=== PATIENT | male | born 1975 | race Caucasian/White ===

== ENCOUNTER → 2020-12-19 16:22 | Outpatient (CLI) | payer BC, SELFPAY ==
--- NOTE | ~2020-12-19 | MR_ITS ---
EXAMINATION: MR knee LT wo con DATE: 12/19/2020 18:12 INDICATION: Left knee pain. TECHNIQUE: Magnetic resonance imaging (MRI) of the left knee was performed without intravenous contra st. Sequences included axial STIR FSE, coronal PD-weighted FSE and STIR FSE, sagittal PD-weighted FSE , and sagittal STIR FSE. COMPARISON: Left knee MRI 03/04/2015 FINDINGS: Medial compartment: There is a complex tear involving body and posterior horn of medial meniscus. There is extensive part ial thickness cartilage loss of tibial condyle, deep at the medial articular surface where there is m ild subchondral edema-like marrow signal intensity. There is extensive partial thickness cartilage lo ss of femoral condyle, deep at the central, medial, and posterior articular surface with mild subchon dral edema-like marrow signal intensity. Osteophytes are noted. Lateral compartment: There is a radial tear of posterior horn of lateral meniscus. There is shallow partial-thickness cart ilage loss of tibial condyle, worst medially where there is mild subchondral edema-like marrow signal intensity. There is extensive partial thickness cartilage loss of femoral condyle, deep at the centr al articular surface. Osteophytes are noted. Patellofemoral compartment: There is cartilage surface irregularity of patella. There is partial-thickness cartilage loss of troc hlea, deep at the central and lateral trochlea. Osteophytes are noted. Ligaments and tendons: There are changes of anterior cruciate ligament reconstruction, which is intact. The posterior crucia te ligament is intact. The medial collateral ligament is normal. There are changes of partial tear of the fibular collateral ligament proximally. There is a graft harvest site involving the middle third of patellar tendon. Fluid: There is a small knee joint effusion. There is a 3.6 x 1.6 cm ganglion cyst posterior to the anterior cruciate ligament reconstruction proximally. Osseous/other: There is a hematoma in lateral head of gastrocnemius muscle at the proximal myotendinous junction, co nsistent with partial tear. IMPRESSION: 1. Grade 2 strain of lateral head of gastrocnemius muscle. 2. Moderate tricompartmental chondrosis. 3. Intact anterior cruciate ligament reconstruction with associated ganglion cyst. 4. Tears of medial and lateral menisci. 5. Small knee joint effusion. Reviewed, dictated and finalized at location A. IMPRESSION: 1. Grade 2 strain of lateral head of gastrocnemius muscle. 2. Moderate tricompartmental chondrosis. 3. Intact anterior cruciate ligament reconstruction with associated ganglion cy st. 4. Tears of medial and lateral menisci. 5. Small knee joint effusion.
== END ==
PROVIDERS: PCP Internal Medicine; Visit Provider Physician Assistant Medical
DX: M25.562 Pain in left knee (principal); S86.812A Strain of other muscle(s) and tendon(s) at lower leg level, left leg, initial encounter; M22.2X1 Patellofemoral disorders, right knee; M67.462 Ganglion, left knee; S83.242A Other tear of medial meniscus, current injury, left knee, initial encounter; S83.282A Other tear of lateral meniscus, current injury, left knee, initial encounter; M25.462 Effusion, left knee
CPT/HCPCS: 73721

== ENCOUNTER 2022-08-05 13:39 | Outpatient (CLI) | payer BC, SELFPAY ==
--- NOTE | 2022-08-05 14:47 | ECG_ITS ---
Measurements Intervals [place] Rate: 62 P: 95 SC: 171 QRS: 24 QRSD: 109 T: -1 QT: 312 QTc: 317 Interpretive Statements SINUS RHYTHM INCOMPLETE RIGHT BUNDLE BRANCH BLOCK BORDERLINE ST-T WAVE ABNORMALITY- INFERIOR LEADS BASELINE ARTIFACT- I, II, III, AVR, AVL, AVF, V4-V6 BORDERLINE ECG NO PREVIOUS ECG AVAILABLE FOR COMPARISON Electronically Signed On 08-05-2022 15:14:36 FILTERER by Kyler Lassiter D.O.
[2022-08-05 16:07] LABS: Basophils Absolute Auto 0.1 K/mm3 (0.0-0.1); Eosinophils Absolute Auto 0.5 K/mm3 (0-0.3); Eosinophils Percent Auto 5.6 % (0-4.4); Hematocrit 46.6 % (42.0-52.0); Hemoglobin 15.3 g/dL (14.0-18.0); Immature Granulocyte Absolute 0.02 K/mm3 (0.00-0.031); Immature Granulocyte Percent A 0.2 % (0-0.5); Lymphocytes Absolute Auto 2.26 K/mm3 (0.9-3.2); Lymphocytes Percent Auto 27.4 % (18.3-44.2); Mean Corpuscular HGB Conc 32.8 g/dl (32-36); Mean Corpuscular Hemoglobin 30.3 pg (26-34); Mean Corpuscular Volume 92.3 fl (80-100); Mean Platelet Volume 9.2 fl (7.4-10.4); Monocytes Absolute Auto 0.8 K/mm3 (0.1-0.6); Monocytes Percent Auto 9.9 % (2.6-8.5); Neutrophils Absolute Auto 4.6 K/mm3 (1.3-6.7); Neutrophils Percent Auto 55.9 % (45.5-73.1); Platelet Count Result 272 k/mm3 (150-375); Red Blood Count 5.05 M/mm3 (4.6-6.20); Red Cell Distribution Width 12.9 % (11.5-14.5); White Blood Count 8.3 K/mm3 (4.5-10.0)
[2022-08-05 16:11] LABS: Appearance Urine Slightly Cloudy (Clear); Bilirubin Urine Negative (Negative); Blood Urine Trace-lysed (Negative); Color Urine Yellow (Yellow); Glucose Urine UA Negative (Negative); Ketones Urine Negative (Negative); Leukocyte Esterase Ur Negative LEU/UL (Negative); Nitrate Urine Negative (Negative); Protein Urine 1+ mg/dL (Negative); Specific Grav Ur 1.025 (1.001-1.035); Urobilinogen Urine 0.2 mg/dL (<2.0)
[2022-08-05 16:15] LABS: Urine Cotinine NEGATIVE
[2022-08-05 16:16] LABS: Albumin Level 4.6 g/dL (3.5-5.1); Anion Gap 10 mmol/L (8-16); Blood Urea Nitrogen 16 mg/dL (9-20); Calcium 8.8 mg/dL (8.4-10.2); Carbon Dioxide 27 mmol/L (22-30); Chloride 101 mmol/L (98-107); Estimated Glomerular Filt Rate > 60; Glucose 85 mg/dL (65-110); Hemoglobin A1C 5.7 % (<5.7); Potassium 3.7 mmol/L (3.4-5.0); Sodium 138 mmol/L (137-145)
[2022-08-05 16:17] LABS: INR 1.1; Prothrombin Time 13.9 Seconds (11.1-14.7)
[2022-08-05 16:18] LABS: Partial Thromboplastin Time 28.7 SECONDS (22.3-36.8)
[2022-08-05 16:22] LABS: Bacteria Urine Trace /hpf; Mucus Urine Heavy /lpf; Squamous Epithelial Cell Urine Rare /hpf (Few)
[2022-08-05 16:24] LABS: Add Urine Microscopic? YES
== END 2022-08-05 13:40 | disposition home or self-care (01) ==
LOC: ANHSURGERY 13:44
PROVIDERS: PCP Family Medicine; Visit Provider Orthopaedic Surgery
DX: Z01.818 Encounter for other preprocedural examination (principal); M17.12 Unilateral primary osteoarthritis, left knee; I45.19 Other right bundle-branch block
CPT/HCPCS: 80048; 80307; 81001; 82040; 83036; 85025; 85610; 85730; 86850; 86900; 86901; 87081; 93005

== ENCOUNTER 2022-08-18 01:36 | Day surgery (SDC) | payer BC, SELFPAY ==
[2022-08-05 14:12] VITALS: BP 140/88; PULSE 61; RESP 16; TEMP 36.5; O2SAT 100; BMI 35.6
--- NOTE | 2022-08-05 14:22 | PC.NURSE ---
Report to the Outpatient Waiting Room, entrance under the green pavilion located off [facility], at time _6:00AM on date __08/18/22 . Planned Procedure Time: __7:30AM . Time changes happen often and if your time is changed the preop area will call you the afternoon before. - You and your visitor will be asked to self-screen and do not enter if you have any COVID symptoms. - Only one visitor is requested with a max of two and NO children visitors are allowed at this time. - The patient visitor may be requested to leave or wait in car when not with patient due to distancing restrictions. - A mask is optional within the hospital. Patients may have clear liquids (water, carbonated beverages, clear teas, apple juice) until 3 hours prior to surgery with a maximum of 20 ounces. - No food from midnight until time of surgery. Take the following medications with a SIP of water the morning of surgery: _ADVAIR INHALER Medications to discontinue per physician ___HOLD ALL VITAMINS/SUPPLEMENTS 3 DAYS PRE-OP Date to take last dose____08/14/22 Please no make-up, nail ethiopian, hairspray, perfume, deodorant, or body powder the day of surgery. No jewelry (including any body piercings) or valuables the day of surgery, leave them at home. Please take a shower or bath the night before, or the morning of, surgery with an antibacterial soap. Wear comfortable, loose fitting clothing. Children are encouraged to wear pajamas. - Jewelry must be removed prior to entering the operating room. Rings and piercings that are not removed may be cut off. - The hospital will not accept responsibility for valuables. - Please leave all valuables, including medications, at home the day of surgery. If you are going home after surgery, a licensed emergency medical technician/driver must drive you home. - NO public transportation without another adult if you receive anesthesia. - We recommend that an adult stay with you for 24 hours following discharge. - We also recommend that you do not drive, make important decision, drink alcoholic beverages, or take any drugs that were not prescribed by your health care provider for at least 24 hours after your discharge time. Follow any additional instructions given to you from your surgeon. If you or anyone in your household have experienced Covid symptoms in the past week, please notify your surgeon or the nurse liaison at the phone number below for possible testing. Telephone instructions given to __PATIENT and asked if any additional questions and then verbalized understanding. Patient advised to call surgeon office or pre surgery nurse liaison [phone] if any additional questions.
[2022-08-18] VITALS (16 sets, daily range): BP systolic 111–141; BP diastolic 62–91; PULSE 67–86; RESP 12–20; TEMP 36–36.4; O2SAT 93–98
--- NOTE | ~2022-08-18 | XR_ITS ---
EXAMINATION: XR knee LT 2V DATE: 08/18/2022 11:38 INDICATION: Total left knee arthroplasty. Postop. TECHNIQUE: 2 views of left knee were obtained. COMPARISON: Left knee radiographs 02/12/2022 FINDINGS: There is a total left knee arthroplasty without patellar resurfacing in near-anatomic align ment. No fracture. There is an interference screw in distal femur. There is gas in the knee joint and soft tissues, consistent with recent surgery. Anterior skin doug are noted. IMPRESSION: 1. Total left knee arthroplasty in near-anatomic alignment. Reviewed, dictated and finalized at location A. MAINTENANCE
[2022-08-18] MEDS: ACETAMINOPHEN 500 MG TABLET 1000 MG PO (06:25)
[2022-08-18] MEDS: LACTATED RINGERS 1,000 ML 30 ML IV CONT ×2 (06:35→11:23)
--- NOTE | 2022-08-18 07:09 | WPDANESEPPF ---
Anes - Initial Pre Proc Eval Procedure: Operation Date: 08/18/22 07:30 Proposed Procedures p Left Total Knee Arthroplasty - Yfn Arriaga MD Date/Time: 08/18/22 07:09 Surgeon: Yfn Arriaga MD Pre Op Diagnosis: Lt Knee DJD Patient Data Age: 47 Gender: M Height: 1.88 m Weight: 124.5 kg Last Vital Signs Temp 36.0 C L 08/18/22 06:13 Pulse 74 08/18/22 06:13 Resp 20 08/18/22 06:13 BP 129/81 08/18/22 06:13 Pulse Ox 98 08/18/22 06:13 O2 Del Method Room Air 08/18/22 06:13 Allergies Allergy/AdvReac Type Severity Reaction Status Date / Time No Known Allergies Allergy Unknown Verified 08/12/22 14:40 Home Medications Medication Instructions Recorded Confirmed Type Juice Plus Fibre 4 cap PO DAILY 08/05/22 08/18/22 History ibuprofen 800 mg tablet 800 mg PO BID PRN Pain 08/05/22 08/18/22 History amlodipine 5 mg-benazepril 10 mg See Rx Instructions .Route 08/06/22 08/18/22 Rx capsule .COMPLEX #90 caps fluticasone 100 mcg-salmeterol 50 1 inh inhalation Q12H #60 ea 08/06/22 08/18/22 Rx mcg/dose blistr powdr for inhalation (Advair Diskus) Patient hx anesthesia problems: none Family hx anesthesia problems: none Results Review: All pre-operative results and documents have been reviewed as part of the pre-operative evaluation. [facility] Past Medical History Medical History Adverse effect of cortisone Arthritis Asthma Essential (primary) hypertension Left hip pain Left knee DJD Surgical History Surgical History History of foot surgery Excision Calcaneal Exostosis 2015 Dr. 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 Gender identity (if verbalized by the patient): Male Spiritual care concerns: No Anes - Eval Final PreProcedure Day of Procedure 08/18/22 07:09 Patient weight: obese Heart: regular rate and rhythm Lungs: clear to auscultation Airway: Mallampati scale class III and special considerations (small opening) Neurological: alert and oriented Last oral intake: >/= 8 hours ASA classification: III Emergent: no Anesthetic plan: proceed Anesthesia type and monitoring: general LMA and standard monitoring Results Review: All pre-operative results and documents have been reviewed as part of the pre-operative evaluation. Informed Consent: The patient's anesthetic plan and its attendant risks and benefits were discussed with the patient/family/POA. Questions were solicited and answers provided to the satisfaction of the patient/family/POA.
[2022-08-18] MEDS: TRANEXAMIC ACID 1,000MG/ISO100 1,000 MG/100 ML BAG 200 MG IVPB (07:16)
--- NOTE | 2022-08-18 07:22 | WPDHPUPDATE1 ---
History and Physical Update Update Date/Time: 08/18/22 07:22 History and Physical has been reviewed, including an updated exam of the patient. There are NO changes in the patient's condition. Risks, benefits, and alternatives have been discussed and questions answered. Patient agrees to proceed with procedure. PROCEED WITH LEFT TKA
--- NOTE | 2022-08-18 07:44 | WPDANESPNB ---
Anes - Peripheral Nerve Block Date/Time: 08/18/22 07:44 I have discussed with the patient/family/POA the placement of a peripheral nerve block for post-operative pain management, including associated risks, benefits, complications, and side effects. Alternative methods of post-operative analgesia were detailed. Questions were solicited and answers provided to the satisfaction of the patient/family/POA. Time-Out: A pre-procedural Time-Out was completed immediately before starting the procedure and confirmed: Patient Identification, Site, Procedure, Patient Position and the Availability of Requisite Equipment. Clinical Indications: Acute post-operative pain management requested by the operative surgeon. Nerve Block Insertion Note Anes-nerve block: adductor canal left Patient position: supine Skin prep: chlorhexidine Needle: 22 gauge, stimulating, insulated echogenic needle. Needle length: 80 mm Technique: ultrasound Technique comment: mid 2mg fent 100mcg Injectate: bupivacaine 0.5% with epi 5 mcg/ml (30ml no epi) and dexamethasone (mg) (4) Observations: tolerated well Complications: none Procedure start time:: 726 Procedure end time:: 733
[2022-08-18] MEDS: ceFAZolin 3 GM/D5W 100 ML 100 ML IVPB (07:49)
[2022-08-18] MEDS: TRANEXAMIC ACID 1,000 MG/10 ML AMPUL 1000 MG IV PUSH (10:10)
--- NOTE | 2022-08-18 11:32 | P.OP_ITS ---
Procedure Note - Detailed Date of Procedure 08/18/22 Pre-op Diagnosis Lt Knee DJD Post-op Diagnosis Same Procedure Performed L TKA Surgeon Yfn Arriaga MD Anesthesia General Description of Procedure THE LEFT KNEE WAS PREPPED AND DRAPED IN THE STERILE FASHION. THERE WAS A 25 DEGREE FLEXION CONTRACTURE. A MIDLINE SKIN INCISION WAS MADE. THE INCISION FOLLOWED THE OLD SCAR INTO THE PROXIMAL LEG. A MEDIAL PARAPATELLAR ARTHROTOMY WAS MADE. THE PATELLA WAS EVERTED. THERE WAS SEVERE TRICOMPARTMENT DJD. THE SC REW AND WASHER WAS IDENTIFIED AND REMOVED IN ITS ENTIRETY. ETHIBOND SUTURE WAS REMOVED WELL. AN INTRAMEDULLARY SHMUEL WAS PLACED IN THE FEMUR. A DISTAL FEMORAL CUT WAS MADE IN 5 DEGREES OF VALGUS REMOVING APPROXIMATELY 12 MM OF BONE FROM THE DISTAL FEMUR. THE FEMUR WAS SIZED TO 75. A 75 FEMORAL CUTTING BLOCK WAS PLACED IN 3 DEGREES OF EXTERNAL ROTATION AND IN ALIGNMENT WITH JEFF'S LINE AND THE TRANSEPICONDYLAR AXIS. ANTERIOR POSTERIOR AND CHAMFER CUTS WERE MADE. THE CUTS WERE EXCELLENT. NEXT AN INTRAMEDULLARY CUTTING GUIDE WAS PLACED IN THE TIBIA. A TRANS TIBIAL CUT WAS MADE ALONG THE LONG AXIS OF THE TIBIA. APPROXIMATELY 10 MM OF BONE WAS REMOVED FROM THE HIGH SIDE OF THE TIBIA. THE TIBIA WAS THEN PLANED TO A SMOOTH SURFACE. POSTERIOR FEMORAL OSTEOPHYTES WERE REMOVED FROM THE FEMORAL CONDYLES. A 83 TIBIAL TRIAL WAS PLACED IN ALIGNMENT WITH THE 1/3 MEDIAL ASPECT OF THE TIBIAL TUBERCLE. THEN A 75 FEMORAL TRIAL COMPONENT WAS PLACED. BOTH HAD EXCELLENT FITS. EVENTUALLY A 10 MM CR POLYETHYLENE TRIAL COMPONENT WAS PLACED. THE KNEE WAS TAKEN THROUGH A RANGE OF MOTION. LIGAMENT BALANCING WAS PREFORMED. THE KNEE CAME OUT TO FULL EXTENSION. THERE WAS NO ABNORMAL TILT TO THE PATELLA. THERE WAS GOOD A/P AND VARUS/VALGUS STABILITY. THERE WAS NO EXCESSIVE ROLL BACK WITH FLEXION. THE TRIAL COMPONENTS WERE REMOVED. THEN A 75 FEMORAL COMPONENT AND 83 TIBIAL COMPONENT WITH A 10 CR POLYETHYLENE COMPONENT WERE CEMENTED INTO PLACE. ONCE THE CEMENT WAS HARD THE KNEE WAS TAKEN THROUGH A ROM AGAIN AND FOUND TO BE STABLE WITH NO PATELLA TILT NO EXCESSIVE ROLL BACK WITH FLEXION AND GOOD STABILITY WITH COMPLETE AND FULL EXTENSION. THE KNEE WAS IRRIGATED WITH STERILE BETADINE AND WATER FOR ABOUT 3 MINUTES. THE BLEEDERS WERE CAUTERIZED. THE ARTHROTOMY WAS REPAIRED WITH NUMBER 1 VICRYL. THE SUB CUTANEOUS LAYER WITH 2-0 VICRYL AND THE SKIN WITH ELSA. THE WOUND WAS WASHED AND A STERILE DRESSING WAS APPLIED. PATIENT WAS EXTUBATED. Estimated Blood Loss -150.0 Pathology None sent Complications No immediate complications Condition Stable Disposition PACU
[2022-08-18] MEDS: SCOPOLAMINE 1.5 MG PATCH TRANSDERM (11:35)
[2022-08-18] MEDS: fentaNYL CITRATE INJ (*CRX) 100 MCG/2 ML VIAL 25 MCG IV PUSH ×4 (11:46→12:01)
[2022-08-18] MEDS: diazePAM INJ (*CRX) 10 MG/2 ML SYRINGE 5 MG IV PUSH (11:51)
--- NOTE | 2022-08-18 12:54 | ADMGEN ---
This patient, Peterson Jennings, was admitted to 2 Medical Room 251-01. Patient/family oriented to hospital policies and general routines including ID bracelet, bed and alarms, visiting hours, pain management, procedures, bathroom and other care routines, personal items, smoking policy, room service/diet, and visiting hours. Information on how to activate the Rapid Response Team has been discussed. Patient/Family are encouraged to report perceived risks to care and to ask questions if they do not understand what they are told or what they should do.
--- NOTE | 2022-08-18 13:31 | PC.NURSE ---
Ice pack in place on knee now, cryo cuff on order from central supply
[2022-08-18] MEDS: KETOROLAC 15 MG/ML VIAL (*BKC) IV PUSH ×3 (13:59→23:52)
[2022-08-18] MEDS: oxyCODONE/ACETAMINOPHEN (*CRX) 5-325 MG TABLET 1 TABLET PO (16:29)
[2022-08-18] MEDS: ceFAZolin 2 GM/D5W 50 ML 2 GM/50 ML BAG IVPB ×2 (16:29→23:51)
[2022-08-18] MEDS: amLODIPine BESYLATE 5 MG TABLET PO (20:18)
[2022-08-18] MEDS: ASPIRIN 325 MG ENTERIC TABLET PO (20:18)
[2022-08-18] MEDS: FAMOTIDINE 20 MG TABLET PO (20:19)
[2022-08-18] MEDS: lisinopriL 10 MG TABLET PO (20:20)
[2022-08-18] MEDS: FLUTICASONE/SALMETEROL 45-21 MCG INHALER 1 PUFF 2 PUFF INHALATION (21:44)
[2022-08-19 05:24] VITALS: BP 115/66; PULSE 80; RESP 17; TEMP 36.2; O2SAT 98
[2022-08-19 05:56] LABS: Anion Gap 13 mmol/L (8-16); Blood Urea Nitrogen 15 mg/dL (9-20); Calcium 7.7 mg/dL (8.4-10.2); Carbon Dioxide 23 mmol/L (22-30); Chloride 100 mmol/L (98-107); Estimated CRCL calculation 156 ml/min; Estimated Glomerular Filt Rate > 60; Glucose 116 mg/dL (65-110); Potassium 4.3 mmol/L (3.4-5.0); Sodium 136 mmol/L (137-145)
[2022-08-19 05:59] LABS: Basophils Percent Auto 0.1 % (0.2-1.2); Eosinophils Percent Auto 0.1 % (0-4.4); Hematocrit 39.4 % (42.0-52.0); Hemoglobin 13.3 g/dL (14.0-18.0); Immature Granulocyte Absolute 0.06 K/mm3 (0.00-0.031); Immature Granulocyte Percent A 0.4 % (0-0.5); Lymphocytes Absolute Auto 1.51 K/mm3 (0.9-3.2); Lymphocytes Percent Auto 9.5 % (18.3-44.2); Mean Corpuscular HGB Conc 33.8 g/dl (32-36); Mean Corpuscular Hemoglobin 30.1 pg (26-34); Mean Corpuscular Volume 89.1 fl (80-100); Mean Platelet Volume 8.9 fl (7.4-10.4); Monocytes Absolute Auto 1.1 K/mm3 (0.1-0.6); Monocytes Percent Auto 6.7 % (2.6-8.5); Neutrophils Absolute Auto 13.2 K/mm3 (1.3-6.7); Neutrophils Percent Auto 83.2 % (45.5-73.1); Platelet Count Result 255 k/mm3 (150-375); Red Blood Count 4.42 M/mm3 (4.6-6.20); Red Cell Distribution Width 12.3 % (11.5-14.5); White Blood Count 15.9 K/mm3 (4.5-10.0)
[2022-08-19] MEDS: KETOROLAC 15 MG/ML VIAL (*BKC) IV PUSH ×2 (06:29→11:24)
[2022-08-19] MEDS: ceFAZolin 2 GM/D5W 50 ML 2 GM/50 ML BAG IVPB (06:29)
[2022-08-19] MEDS: ASPIRIN 325 MG ENTERIC TABLET PO (08:08)
[2022-08-19] MEDS: polyethylene glycoL 3350 17 GM POWD.PACK PO (08:08)
[2022-08-19] MEDS: SENNA/DOCUSATE SODIUM TABLET 2 TAB PO (08:08)
[2022-08-19] MEDS: FAMOTIDINE 20 MG TABLET PO (08:09)
[2022-08-19] MEDS: FLUTICASONE/SALMETEROL 45-21 MCG INHALER 1 PUFF 2 PUFF INHALATION (09:18)
[2022-08-19 10:25] VITALS: BP 114/67; PULSE 77; RESP 16; TEMP 36.4; O2SAT 96
[2022-08-19 14:30] VITALS: BP 110/61; PULSE 73; RESP 16; TEMP 36.6; O2SAT 100
--- NOTE | 2022-08-19 14:55 | PM.PNORT ---
Progress Note: A&P Assessment and Plan (1) S/P total knee arthroplasty: Code(s): Z96.659 - Presence of unspecified artificial knee joint Status: Acute Assessment and Plan: POD 1 LEFT TKA DOING WELL. OK TO DC HOME F/U IN 3 WEEKS Subjective Subjective Date/Time Seen: 08/19/22 14:POD 1 DOING WELL. NO CALF PAIN Exam Extrem: Other: VSS AFEBRILE DRESSING DRY NV INTACT NEG HOMANS SIGN CALF SOFT Objective Data Vital Signs Vital Signs: Vital Signs - 24 hr 08/18/22 18:30 08/18/22 19:33 08/18/22 20:00 Temperature 36.4 C 36.3 C L Pulse Rate 82 83 83 Respiratory Rate 16 18 18 Blood Pressure 120/75 116/63 Pulse Oximetry 96 93 93 Oxygen Delivery Room Air 08/18/22 23:14 08/19/22 05:24 08/19/22 08:00 Temperature 36.2 C L 36.2 C L Pulse Rate 84 80 Respiratory Rate 18 17 Blood Pressure 111/67 115/66 Pulse Oximetry 98 98 Oxygen Delivery Room Air 08/19/22 10:25 08/19/22 14:30 Temperature 36.4 C 36.6 C Pulse Rate 77 73 Respiratory Rate 16 16 Blood Pressure 114/67 110/61 Pulse Oximetry 96 100 Oxygen Delivery Intake/Output Intake/Output: Intake & Output 08/16/22 08/17/22 08/18/22 08/19/22 23:59 23:59 23:59 23:59 Intake Total 1860 770 Balance 1860 770 Meds/Results Medications: Active Medications Generic Name Dose Route Start Last Admin Trade Name Freq PRN Reason Stop Dose Admin Acetaminophen 1,000 mg 08/18/22 12:39 Acetaminophen 500 Mg Tablet PO Q6H PRN Pain Rated 1-3 Amlodipine Besylate 5 mg 08/18/22 21:00 08/18/22 20:18 Amlodipine Besylate 5 Mg Tablet PO 5 mg HS GEOVANI Administration Aspirin 325 mg 08/18/22 21:00 08/19/22 08:08 Aspirin 325 Mg Enteric Tablet PO 325 mg Q12HR GEOVANI Administration Diazepam 5 mg 08/18/22 12:39 Diazepam (*Crx) 5 Mg Tablet PO Q8H PRN Spasms Diphenhydramine HCl 25 mg 08/18/22 12:39 Diphenhydramine Hcl Inj 50 Mg/Ml Vial IV PUSH Q6H PRN Itching Famotidine 20 mg 08/18/22 21:00 08/19/22 08:09 Famotidine 20 Mg Tablet PO 20 mg Q12HR GEOVANI Administration Lisinopril 10 mg 08/18/22 21:00 08/18/22 20:20 Lisinopril 10 Mg Tablet PO 10 mg HS GEOVANI Administration Naloxone HCl 0.1 mg 08/18/22 12:39 Naloxone Hcl 0.4 Mg/Ml Vial IV PUSH Q2M PRN Opiate Reversal Ondansetron HCl 4 mg 08/18/22 12:39 Ondansetron Inj 4 Mg/2 Ml Vial IV PUSH Q4H PRN Nausea And Vomiting Oxycodone/Acetaminophen 1 tablet 08/18/22 12:39 08/18/22 16:29 Oxycodone/Acetaminophen (*Crx) 5-325 Mg Tablet PO 1 tablet Q4H PRN Administration Pain Rated 4-6 Oxycodone/Acetaminophen 2 tablet 08/18/22 12:39 Oxycodone/Acetaminophen (*Crx) 5-325 Mg Tablet PO Q6H PRN Pain Rated 7-10 Polyethylene Glycol 17 gm 08/19/22 09:00 08/19/22 08:08 Polyethylene Glycol 3350 17 Gm Powd.Pack PO 17 gm QAM GEOVANI Administration Fluticasone/Salmeterol 2 puff 08/18/22 20:00 08/19/22 09:18 Fluticasone/Salmeterol 45-21 Mcg Inhaler 1 Puff INHALATION 2 puff Q12HRT GEOVANI Administration Senna/Docusate Sodium 2 tab 08/18/22 17:00 08/19/22 08:08 Senna/Docusate Sodium Tablet PO 2 tab BID GEOVANI Administration Radiology Results: ITS Impressions Knee X-Ray 08/18/22 11:40 IMPRESSION: 1. Total left knee arthroplasty in near-anatomic alignment. Labs Labs: Laboratory Results - last 24 hr 08/19/22 08/19/22 05:16 05:16 WBC 15.9 H RBC 4.42 L Hgb 13.3 L Hct 39.4 L MCV 89.1 MCH 30.1 MCHC 33.8 RDW 12.3 Plt Count 255 MPV 8.9 Immature Gran % (Auto) 0.4 Neut % (Auto) 83.2 H Lymph % (Auto) 9.5 L [place] % (Auto) 6.7 Eos % (Auto) 0.1 Baso % (Auto) 0.1 L Lymph # (Auto) 1.51 [place] # (Auto) 1.1 H Eos # (Auto) 0.0 Baso # (Auto) 0.0 Abs Immat Gran (auto) 0.06 H Absolute Neuts (auto) 13.2 H Absolute Nucleated RBC 0.0 Nucleated RBC % 0.0 Sodium 136 L Potassium 4.3 Chlor
--- NOTE | 2022-08-19 14:57 | PM.DS ---
DS: Admitting Diagnosis Discharge Date 08/19/22 Admitting Diagnosis LEFT KNEE DJD DS: Discharge Diagnosis Discharge Diagnosis (1) S/P total knee arthroplasty: Code(s): Z96.659 - Presence of unspecified artificial knee joint Status: Acute DS: Summary Hospital Course Reason for hospitalization: PATIENT WAS ADMITTED S/P TOTAL KNEE ARTHROPLASTY FOR POSTOPERATIVE MEDICAL MANAGEMENT, PAIN CONTROL AND MOBILIZATION WITH PHYSICAL AND OCCUPATIONAL THERAPY. THE PATIENT PROGRESSED WELL WITH PT/OT. LABS AND VITALS REMAINED STABLE AND PAIN WELL CONTROLLED. THE PATIENT HAS BEEN CLEARED TO BE DISCHARGED HOME. FOLLOW UP APPOINTMENT SCHEDULED. DISCHARGE INSTRUCTIONS DISCUSSED AT LENGTH WITH THE PATIENT. MEDICATIONS REVIEWED. Hospital Course: PATIENT WAS ADMITTED S/P TOTAL KNEE ARTHROPLASTY FOR POSTOPERATIVE MEDICAL MANAGEMENT, PAIN CONTROL AND MOBILIZATION WITH PHYSICAL AND OCCUPATIONAL THERAPY. THE PATIENT PROGRESSED WELL WITH PT/OT. LABS AND VITALS REMAINED STABLE AND PAIN WELL CONTROLLED. THE PATIENT HAS BEEN CLEARED TO BE DISCHARGED HOME. FOLLOW UP APPOINTMENT SCHEDULED. DISCHARGE INSTRUCTIONS DISCUSSED AT LENGTH WITH THE PATIENT. MEDICATIONS REVIEWED. Status at Discharge Cognitive/behavioral status at discharge: STABLE Functional status at discharge: uses cane/walker Time Spent with Patient Time attestation: Total time spent providing and/or coordinating discharge services: DS: Data Data Completed and Pending Labs on day of discharge: Labs from last 24 hours 08/19/22 08/19/22 05:16 05:16 WBC 15.9 H RBC 4.42 L Hgb 13.3 L Hct 39.4 L MCV 89.1 MCH 30.1 MCHC 33.8 RDW 12.3 Plt Count 255 MPV 8.9 Immature Gran % (Auto) 0.4 Neut % (Auto) 83.2 H Lymph % (Auto) 9.5 L [place] % (Auto) 6.7 Eos % (Auto) 0.1 Baso % (Auto) 0.1 L Lymph # (Auto) 1.51 [place] # (Auto) 1.1 H Eos # (Auto) 0.0 Baso # (Auto) 0.0 Abs Immat Gran (auto) 0.06 H Absolute Neuts (auto) 13.2 H Absolute Nucleated RBC 0.0 Nucleated RBC % 0.0 Sodium 136 L Potassium 4.3 Chloride 100 Carbon Dioxide 23 Anion Gap 13 BUN 15 Creatinine 0.70 Estim Creat Clear Calc 156 Estimated GFR > 60 Glucose 116 H Calcium 7.7 L Discharge Plan Discharge Patient Disposition: Home Health Service Discharge Instructions: Per [facility] will contact you prior to their first visit. [facility] has been arranged to follow RN/PT/OT evaluation and treatment. [facility] can be contacted at [phone]. Post Op Total Knee Replacement Instructions Dr. Yfn Arriaga [phone] Your dressing will be changed prior to your discharge. You will be sent home with one additional dressing to be changed on post op day 7 by the [facility] RN. Your doug will be removed on the 14th day after surgery and steri-strips will be placed. Please practice good hand hygiene and do not touch your incision in order to prevent infection. You may shower with your dressing but do not submerge in a bath tub. Do not drive or operate machinery until you are released by Dr. Arriaga. Do not walk without a walker for any reason until you are released by Dr. Arriaga. Continue to use your ice machine. Please use a towel or pillow case to protect your skin before applying your ice machine. Do NOT place a pillow under your knee. You may use a pillow from the calf down if needed. This will prevent a flexion contracture postoperatively. You may begin use of your CPM machine at home if you have been given one pre-operatively. DO NOT USE WHILE YOU ARE SLEEPING. Your first post op appointment was sent to you via mail preoperatively. If you have any questions or are unable to make your appointment, please contact our office for scheduling questions. Your medications have been sent to your pharmacy. You have been sent home with pain medication. We have also sent you with a stool softe
== END 2022-08-19 15:16 | disposition home health service (06) ==
LOC: ANHSURGERY 06:07 → ANH2MED 12:49
PROVIDERS: PCP Family Medicine; Visit Provider Orthopaedic Surgery
PROC: (CPT 27447; principal; 2022-08-18 07:30)
DX: M17.12 Unilateral primary osteoarthritis, left knee (principal); G89.18 Other acute postprocedural pain; I10 Essential (primary) hypertension; J45.909 Unspecified asthma, uncomplicated; Z79.51 Long term (current) use of inhaled steroids; E66.9 Obesity, unspecified; Z68.35 Body mass index [BMI] 35.0-35.9, adult
CPT/HCPCS: 27447; 64447; 36415; 73560; 80048; 85025; 94640; 97110; 97116; 97161; 97165; 97530; 97535; A9270; C1713; C1776; J0131; J0171; J0690; J1100; J1170; J1885; J2250; J2270; J2405; J2704; J2795; J3010; J3360; J3370; J7120

== ENCOUNTER 2022-11-20 01:58 | Day surgery (SDC) | payer BC, SELFPAY ==
[2022-11-11 15:23] VITALS: BMI 35.2
--- NOTE | 2022-11-11 15:24 | PC.NURSE ---
Report to the Outpatient Waiting Room, entrance under the green pavilion located off [facility], at time 1100 on date 11/20/22. Planned Procedure Time: 1300. Time changes happen often and if your time is changed the preop area will call you the afternoon before. - You and your visitor will be asked to self-screen and do not enter if you have any COVID symptoms. - Only one visitor is requested with a max of two and NO children visitors are allowed at this time. - The patient visitor may be requested to leave or wait in car when not with patient due to distancing restrictions. - A mask is optional within the hospital at this time. Patients may have clear liquids (water, carbonated beverages, clear teas, apple juice) until 3 hours prior to surgery with a maximum of 20 ounces. - No food from midnight until time of surgery Take the following medications with a SIP of water the morning of surgery: INHALER, PAIN PILL IF NEEDED DO NOT STOP ANY OF YOUR OTHER PRESCRIPTION MEDICATIONS PRIOR TO SURGERY?EXCEPT THE FOLLOWING Medications to discontinue per physician: VITAMINS/SUPPLEMENTS Date to take last dose: 11/16/22 Please no make-up, nail somali, hairspray, perfume, deodorant, or body powder the day of surgery. No jewelry (including any body piercings) or valuables the day of surgery, leave them at home. Please take a shower or bath the night before, or the morning of, surgery with an antibacterial soap. Wear comfortable, loose fitting clothing. - Jewelry must be removed prior to entering the operating room. Rings and piercings that are not removed may be cut off. - The hospital will not accept responsibility for valuables. - Please leave all valuables, including medications, at home the day of surgery. If you are going home after surgery, a licensed helper driver must drive you home. - NO public transportation without another adult if you receive anesthesia. - We recommend that an adult stay with you for 24 hours following discharge. - We also recommend that you do not drive, make important decision, drink alcoholic beverages, or take any drugs that were not prescribed by your health care provider for at least 24 hours after your discharge time. Follow any additional instructions given to you from your surgeon. If you or anyone in your household have experienced Covid symptoms in the past week, please notify your surgeon or the nurse liaison at the phone number below for possible testing. Telephone instructions given to PT - MANOLO PINK and asked if any additional questions and then verbalized understanding. Patient advised to call surgeon office or pre surgery nurse liaison [phone] if any additional questions.
--- NOTE | 2022-11-20 07:19 | WPDHPUPDATE1 ---
History and Physical Update Update Date/Time: 11/20/22 07:19 History and Physical has been reviewed, including an updated exam of the patient. There are NO changes in the patient's condition. Risks, benefits, and alternatives have been discussed and questions answered. Patient agrees to proceed with procedure.
[2022-11-20] MEDS: ACETAMINOPHEN 500 MG TABLET 1000 MG PO (10:30)
[2022-11-20] MEDS: CELECOXIB 200 MG CAPSULE PO (10:30)
[2022-11-20 10:47] VITALS: BP 127/74; PULSE 74; RESP 16; TEMP 36.1; O2SAT 97
--- NOTE | 2022-11-20 10:56 | WPDANESEPPF ---
Anes - Initial Pre Proc Eval Procedure: Operation Date: 11/20/22 12:00 Proposed Procedures p Left Knee Manipulation and Cortisone Injection - Yfn Arriaga MD Date/Time: 11/20/22 10:56 Surgeon: Yfn Arriaga MD Pre Op Diagnosis: left knee adhesive capsulitis Patient Data Age: 47 Gender: M Height: 1.88 m Weight: 120.4 kg Last Vital Signs Temp 36.1 C L 11/20/22 10:47 Pulse 74 11/20/22 10:47 Resp 16 11/20/22 10:47 BP 127/74 11/20/22 10:47 Pulse Ox 97 11/20/22 10:47 O2 Del Method Room Air 11/20/22 10:47 Allergies Allergy/AdvReac Type Severity Reaction Status Date / Time No Known Allergies Allergy Unknown Verified 11/11/22 15:22 Home Medications Medication Instructions Recorded Confirmed Type Juice Plus Fibre 4 cap PO DAILY 08/05/22 11/11/22 History oxycodone-acetaminophen 5 mg-325 1 tablet PO BID PRN pain #30 tabs 08/31/22 11/11/22 Rx mg tablet amlodipine 5 mg-benazepril 10 mg See Rx Instructions .Route 11/09/22 11/11/22 Rx capsule .COMPLEX #90 caps fluticasone 100 mcg-salmeterol 50 1 inh inhalation Q12H #60 ea 11/18/22 Rx mcg/dose blistr powdr for inhalation (Advair Diskus) hydrocodone 5 mg-acetaminophen 325 1 tablet PO Q12H PRN pain #20 tabs 11/20/22 Rx mg tablet Patient hx anesthesia problems: none Family hx anesthesia problems: none Results Review: All pre-operative results and documents have been reviewed as part of the pre-operative evaluation. [facility] Past Medical History Medical History Adverse effect of cortisone Arthritis Asthma Essential (primary) hypertension Left hip pain Left knee DJD Surgical History Surgical History History of foot surgery Excision Calcaneal Exostosis 2015 Dr. Trujillo History of repair of ACL 2000 S/P total knee arthroplasty Left TKA 08/18/2022 Family History Family History Other Arthritis Asthma Diabetes mellitus Hypertension Social History Social History Smoking status: Never smoker Alcohol intake: current Drinks per week: 1 Alcohol use details: 2/MONTH Substance use: never Substance use type: does not use Lack of Transportation: No Lack of Food: Never True Current Housing: I Have Housing Concerned About Future Housing: No Difficulty Paying Gas/Electric Bills: No Difficulty Paying for Meds: No Currently Unemployed: No Education: Bachelor's Degree Difficulty w/ Childcare or Family Care: No Living arrangements: with family Additional living arrangements comments: AND KIDS Occupation/Education: occupation 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 Gender identity (if verbalized by the patient): Male Spiritual care concerns: No Anes - Eval Final PreProcedure Day of Procedure 11/20/22 10:56 Patient weight: obese Heart: regular rate and rhythm Lungs: clear to auscultation Airway: Mallampati scale class II, special considerations and other (small opening) Neurological: alert and oriented Last oral intake: >/= 8 hours ASA classification: III Emergent: no Anesthetic plan: proceed Anesthesia type and monitoring: general LMA and standard monitoring Results Review: All pre-operative results and documents have been reviewed as part of the pre-operative evaluation. Informed Consent: The patient's anesthetic plan and its attendant risks and benefits were discussed with the patient/family/POA. Questions were solicited and answers provided to the satisfaction of the patient/family/POA.
[2022-11-20] MEDS: LACTATED RINGERS 1,000 ML 30 ML IV CONT (11:00)
--- NOTE | 2022-11-20 11:55 | W.PM.PROC2 ---
Procedure Note - Detailed Date of Procedure 11/20/22 Pre-op Diagnosis left knee adhesive capsulitis Post-op Diagnosis Same Procedure Performed KEAGAN, INJECTION LEFT TKA Surgeon Yfn Arriaga MD Anesthesia General Indications ADHESIVE CAPSULITIS Description of Procedure THE PATIENT WAS TAKEN TO THE OPERATING ROOM AND PLACED UNDER GENERAL ANESTHESIA. ONCE HE WAS CHEMICALLY PARALYZED THE LEFT KNEE WAS MANIPULATED UNTIL ABOUT 125 DEG OF FLEXION AND FULL EXTENSION WERE ACHIEVED. NEXT THE LEFT KNEE WAS PREPPED AND DRAPED STERILELY. DEPO MEDROL 80 MG X 2 CC AND MARCAINE 0.5% 7 CC WERE INJECTED IN TO THE RIGHT KNEE JOINT. THE PATIENT WAS SENT TO THE RECOVERY ROOM ONCE GENERAL ANESTHESIA WAS REVERSED, IN STABLE CONDITION. Estimated Blood Loss 0 Complications No immediate complications Disposition PACU
[2022-11-20] MEDS: BUPivacaine HCL 0.5% 10 ML AMP 8 ML INFILTRATE (12:06)
[2022-11-20] MEDS: methylPREDNISolone ACETATE 80 MG/ML VIAL IM (12:07)
[2022-11-20 12:30] VITALS: BP 130/83; PULSE 66; RESP 12; TEMP 36.1; O2SAT 100
[2022-11-20 12:45] VITALS: BP 121/73; PULSE 69; RESP 12; O2SAT 100
[2022-11-20 13:00] VITALS: BP 135/86; PULSE 64; RESP 16; O2SAT 100
[2022-11-20 13:15] VITALS: BP 127/73; PULSE 87; RESP 16
[2022-11-20 13:45] VITALS: BP 124/79; PULSE 62; RESP 16
== END 2022-11-20 14:00 | disposition home or self-care (01) ==
PROVIDERS: PCP Family Medicine; Visit Provider Orthopaedic Surgery
PROC: (CPT 27570; principal; 2022-11-20 12:00)
DX: M76.892 Other specified enthesopathies of left lower limb, excluding foot (principal); Z96.652 Presence of left artificial knee joint; I10 Essential (primary) hypertension; E66.9 Obesity, unspecified; Z68.34 Body mass index [BMI] 34.0-34.9, adult
CPT/HCPCS: 27570; A9270; J1040; J2250; J2405; J2704; J3010; J7120